=== PATIENT | female | born 1970 | race Caucasian/White ===

== ENCOUNTER 2019-04-01 10:50 | Emergency (ER) | payer MEDICARE ==
[2019-04-01 10:57] VITALS: BP 99/57
--- NOTE | 2019-04-01 11:07 | ER Document Report ---
HPI - HPI Time Seen by Provider: 04/01/19 11:02 Notes: Patient is a 48-year-old female with no significant past medical history who presents complaining of left distal ulnar wrist pain without precipitating event or injury that is been slowly increasing over the past 3 weeks. Movement makes the pain worse as well as pushing in the area. She has not noticed any swelling or bruising. She has no other concerns or complaints. Denies drug allergies. Denies any headache, fever, neck pain, URI, sore throat, chest pain, palpitations, syncope, cough, shortness of breath, wheeze, dyspnea, abdominal pain, nausea/vomiting/diarrhea, urinary retention, dysuria, hematuria, loss of control of bowel or bladder, numbness/tingling, saddle anesthesia, muscle paralysis/weakness, or rash. - ROS Systems Reviewed and Negative: Yes All other systems reviewed and negative Past Medical History - Social History Smoking Status: Never Smoker Family History: Reviewed & Not Pertinent Vertical Provider Document - CONSTITUTIONAL Agree With Documented VS: Yes Notes: PHYSICAL EXAMINATION: GENERAL: Well-appearing, well-nourished and in no acute distress. HEAD: Atraumatic, normocephalic. NECK: Normal range of motion, supple without lymphadenopathy. No midline tenderness. LUNGS: Breath sounds clear to auscultation bilaterally and equal. No wheezes rales or rhonchi. HEART: Regular rate and rhythm without murmurs, rubs, gallops. Musculoskeletal: Lt hand/wrist: No erythema, warmth, ecchymosis, deformity, or swelling noted. N/V intact distal. FROM to passive/active at the wrist. Strength 5+/5 to compensation adjuster. No scaphoid tenderness. + Xin reproduces patient's symptoms. Tinel/phalen neg. + mild tenderness ulnar distal wrist to palp. Gamekeeper negative. Extremities: No cyanosis, clubbing, or edema b/l. Peripheral pulses 2+. Capillary refill less than 3 seconds. NEUROLOGICAL: Normal speech, normal gait. Normal sensory, motor exams otherwise unremarkable PSYCH: Normal mood, normal affect. SKIN: see above. No rash Course - Vital Signs Vital signs: Temp Pulse Resp BP Pulse Ox 97.7 F 76 16 99/57 L 96 04/01/19 10:56 04/01/19 10:56 04/01/19 10:56 04/01/19 10:56 04/01/19 10:56 Discharge - Discharge Referrals: [facility] [[facility]] - Follow up as needed
--- NOTE | 2019-04-01 11:45 | RADIOLOGY REPORT (SQ) ---
EXAM DESCRIPTION: WRIST LEFT 3 VIEWS COMPLETED DATE/TIME: 04/01/2019 11:23 am REASON FOR STUDY: left distal ulnar wrist pain COMPARISON: None. NUMBER OF VIEWS: Three views. TECHNIQUE: AP, lateral, and oblique radiographic images acquired of the left wrist. LIMITATIONS: None. FINDINGS: MINERALIZATION: Normal. BONES: There is a well-circumscribed mixed sclerotic and lytic lesion in the distal ulnar diaphysis. SOFT TISSUES: No soft tissue swelling. No foreign body. OTHER: No other significant finding. 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 Correlation with noncontrast CT is recommended. TECHNICAL DOCUMENTATION: JOB ID: [id number] 2010 [employer]- All Rights Reserved Reading location - IP/workstation name: [email or web address]
--- NOTE | 2019-04-01 11:55 | ER Document Report ---
ED Medical Screen (RME) - General Chief Complaint: Wrist Pain Stated Complaint: WRIST INJURY Time Seen by Provider: 04/01/19 11:02 Primary Care Provider: [facility] [Provider Group] - Follow up as needed TRAVEL OUTSIDE OF THE [place] IN LAST 30 DAYS: No - HPI Notes: 04/01/19 Patient is a 48-year-old female with no significant past medical history who presents complaining of left distal ulnar wrist pain without precipitating event or injury that is been slowly increasing over the past 3 weeks. Movement makes the pain worse as well as pushing in the area. She has not noticed any swelling or bruising. She has no other concerns or complaints. Denies drug allergies. Denies any headache, fever, neck pain, URI, sore throat, chest pain, palpitations, syncope, cough, shortness of breath, wheeze, dyspnea, abdominal pain, nausea/vomiting/diarrhea, urinary retention, dysuria, hematuria, loss of control of bowel or bladder, numbness/tingling, saddle anesthesia, muscle paralysis/weakness, or rash. I have treated and performed a rapid initial assessment of this patient. A comprehensive ED assessment and evaluation of the patient, analysis of test resu lts and completion of medical decision making process will be conducted by additional ED providers. PHYSICAL EXAMINATION: GENERAL: Well-appearing, well-nourished and in no acute distress. Musculoskeletal: Lt hand/wrist: No erythema, warmth, ecchymosis, deformity, or swelling noted. N/V intact distal. FROM to passive/active at the wrist. Strength 5+/5 to breadman. No scaphoid tenderness. + Xin reproduces patient's symptoms. Tinel/phalen neg. + mild tenderness ulnar distal wrist to palp. Gamekeeper negative. - Related Data Allergies/Adverse Reactions: No Known Allergies Allergy (Verified 04/01/19 11:03) Past Medical History - Social History Frequency of alcohol use: None Drug Abuse: None Past Surgical History: Reports: Hx Breast Surgery - lumpectomy, Hx Orthopedic Surgery - subtailered joint fusions Physical Exam - Vital signs Vitals: Temp Pulse Resp BP Pulse Ox 97.7 F 76 16 99/57 L 96 04/01/19 10:56 04/01/19 10:56 04/01/19 10:56 04/01/19 10:56 04/01/19 10:56 Course - Vital Signs Vital signs: Temp Pulse Resp BP Pulse Ox 97.7 F 76 16 99/57 L 96 04/01/19 10:56 04/01/19 10:56 04/01/19 10:56 04/01/19 10:56 04/01/19 10:56 Doctor's Discharge - Discharge Referrals: [facility] [Provider [facility]] - Follow up as needed
--- NOTE | 2019-04-01 12:12 | ER Document Report ---
ED General - General Chief Complaint: Wrist Pain Stated Complaint: WRIST INJURY Time Seen by Provider: 04/01/19 11:02 Primary Care Provider: [facility] [Provider [facility]] - Follow up as needed Notes: 48-year-old [id number] female dizziness or breast cancer presents with several weeks of left ulnar wrist pain occasionally radiates down to the fingers and up the arm, with no trauma no swelling no fevers. No injection drug use distant history of breast cancer on surveillance just moved to [place] and is following up with Dr. Enzo Arana. TRAVEL OUTSIDE OF THE [place] IN LAST 30 DAYS: No - Related Data Allergies/Adverse Reactions: No Known Allergies Allergy (Verified 04/01/19 11:03) Past Medical History - Social History Smoking Status: Current Every Day Smoker Frequency of alcohol use: None Drug Abuse: None Family History: None Patient has suicidal ideation: No Patient has homicidal ideation: No Past Surgical History: Reports: Hx Breast Surgery - lumpectomy, Hx Orthopedic Surgery - subtailered joint fusions Review of Systems - Review of Systems Notes: REVIEW OF SYSTEMS GEN: Denies fever, chills, weight loss ENT: Denies sore throat, nasal discharge, ear pain EYES: Denies blurry vision, eye pain, discharge CV: Denies chest pain, palpitations, edema RESP: Denies cough, shortness of breath, wheezing GI: Denies abdominal pain, nausea, vomiting, diarrhea MSK: Left wrist pain SKIN: Denies rash, skin lesions LYMPH: Denies swollen glands/lymph nodes NEURO: Denies headache, focal weakness or numbness, dizziness PSYCH: Denies depression, suicidal or homicidal ideation PHYSICAL EXAMINATION General: No acute distress, well-nourished Head: Atraumatic, normocephalic ENT: Mouth normal, oropharynx moist, no exudates or tonsillar enlargement Eyes: Conjunctiva normal, pupils equal, lids normal Neck: No JVD, supple, no guarding CVS: Normal rate, regular rhythm, no murmurs Resp: No resp distress, equal and normal breath sounds bilaterally GI: Nondistended, soft, no tenderness to palpation, no rebound or guarding Ext: No deformities, no edema, normal range of motion in upper and lower ext Back: No CVA or midline TTP Skin: No rash, warm Lymphatic: No lymphadeopathy noted Neuro: Awake, alert. Face symmetric. GCS 15. Physical Exam - Vital signs Vitals: Temp Pulse Resp BP Pulse Ox 97.7 F 76 16 99/57 L 96 04/01/19 10:56 04/01/19 10:56 04/01/19 10:56 04/01/19 10:56 04/01/19 10:56 Course - Re-evaluation Re-evalutation: 04/01/19 14:55 Wrist pain which is either radiculopathy or tendinitis. No injury, no swelling or signs of acute arthritis X-ray shows benign bone lesion. CT confirms. No fracture. Unlikely mets discussed with patient. She is following up with Dr. Enzo pace for long-term cancer surveillance, and will discuss with him regarding referral for PT/further evaluation. Placed in a wrist splint. Discharge - Vital Signs Vital signs: Temp Pulse Resp BP Pulse Ox 97.7 F 76 16 99/57 L 96 04/01/19 10:56 04/01/19 10:56 04/01/19 10:56 04/01/19 10:56 04/01/19 10:56 - Diagnostic Test Radiology reviewed: Image reviewed, Reports reviewed Discharge - Discharge Clinical Impression: Osteoid osteoma, Left wrist pain Condition: Good Disposition: HOME, SELF-CARE Additional Instructions: Least take ibuprofen as needed and wear the splint for wrist pain. The bone cyst we found is unlikely to be the cause of your pain and you will require further testing by primary care provider. Referrals: [facility] ([facility] [Provider Group] - Follow up as needed
--- NOTE | 2019-04-01 12:51 | RADIOLOGY REPORT (SQ) ---
EXAM DESCRIPTION: CT LT UPPER EXTREMITY WITHOUT COMPLETED DATE/TIME: 04/01/2019 12:09 pm REASON FOR STUDY: evaluate lesion of left wrist as noted on XR COMPARISON: None. EXAM PARAMETERS: TECHNIQUE:Axial imaging performed through the left wrist with reformatted coronal a nd sagittal imaging windowed for bone and soft tissues. Images saved to PACS. 3D IMAGING: Were 3D images as MIP, SSD, or volume rendering performed at the work station? No All CT scanners at this facility use dose modulation, iterative reconstruction, and/or weight based d osing when appropriate to reduce radiation dose to as low as reasonably achievable (ALARA). [facility]: Dose Right [facility]: [employer] [facility]: Dose Right [facility]: Teradose 4D [facility]: [employer] RADIATION DOSE: CT Rad equipment meets quality standard of care and radiation dose reduction techniqu es were employed. CTDIvol: 2.6 mGy. DLP: 49 mGy-cm. mGy. LIMITATIONS: None. FINDINGS: SOFT TISSUES: No obvious swelling or foreign body. BONES: In the distal ulna, about 4 cm from the tip of the ulnar styloid there is a small lesion that is somewhat lytic with some peripheral calcification. There does not appear to be robust reaction in the adjacent cortex at this time. MINERALIZATION: Normal. OTHER: No other significant finding. IMPRESSION: The findings are suggestive of osteoid osteoma. Correlate clinically. TECHNICAL DOCUMENTATION: JOB ID: [id number] [facility] [id number]: Final reports with documentation of one or more dose reduction techniques (e.g., Automate d exposure control, adjustment of the mA and/or kV according to patient size, use of iterative recons truction technique) 2010 [email or web address]- All Rights Reserved Reading location - IP/workstation name: [email or web address]
== END 2019-04-01 13:55 | disposition home or self-care (01) ==
LOC: ER 10:50
DX: D16.9 Benign neoplasm of bone and articular cartilage, unspecified (principal); M25.532 Pain in left wrist; R42 Dizziness and giddiness; F17.200 Nicotine dependence, unspecified, uncomplicated; Z85.3 Personal history of malignant neoplasm of breast
CPT/HCPCS: 99284

== ENCOUNTER → 2019-04-17 | Outpatient (CLI) | payer MEDICARE ==
--- NOTE | 2019-04-17 12:36 | RADIOLOGY REPORT (SQ) ---
EXAM DESCRIPTION: MRI LT UPPER EXTREMITY WITHOUT COMPLETED DATE/TIME: 04/17/2019 11:31 am REASON FOR STUDY: (M85.60)OTHER CYST OF BONE, UNSPECIFIED SITE;(M85.632)OTHER CYST OF BONE, L M85.60 OTHER CYST OF BONE, UNSPECIFIED SITE M85.632 OTHER CYST OF BONE, LEFT FOREARM COMPARISON: CT scan TECHNIQUE: Multiplanar imaging to include fat and fluid sensitive sequences. RENAL FUNCTION: Not indicated LIMITATIONS: None. FINDINGS: MASS SIGNAL CHARACTERISTICS: LOCATION: Distal ulnar marrow. SIGNAL CHARACTERISTICS AND ENHANCEMENT PATTERN: Rim calcification with central chondroid matrix. No adjacent edema. MEASUREMENTS: 5 x 7 mm MARROW SIGNAL IN ADJACENT BONES: Normal OTHER SIGNIFICANT BONE, JOINT OR SOFT TISSUE FINDINGS: None IMPRESSION: Findings most likely small enchondroma. No suspicious features. TECHNICAL DOCUMENTATION: JOB ID: [id number] 2010 [employer]- All Rights Reserved Reading location - IP/workstation name: [email or web address]
--- NOTE | 2019-04-17 12:56 | RADIOLOGY REPORT (SQ) ---
EXAM DESCRIPTION: MRI LT UPPER JOINT WITHOUT COMPLETED DATE/TIME: 04/17/2019 11:31 am REASON FOR STUDY: (M85.60)OTHER CYST OF BONE, UNSPECIFIED SITE M85.60 OTHER CYST OF BONE, UNSPECIFI ED SITE M85.632 OTHER CYST OF BONE, LEFT FOREARM COMPARISON: Plain radiographs TECHNIQUE: Left wrist images acquired and stored on PACS. Multiplanar images include fat sensitive sequences as T1, fluid sensitive sequences as FST2/STIR, cartilage sensitive sequences as FSPD, gradi ent echo sequences. LIMITATIONS: None. FINDINGS: BONE MARROW: No alteration of signal to suggest marrow replacement or edema. No occult fra cture. No large osteophytes. Ulnar lesion described on 1 the other MRI CARPAL ALIGNMENT AND ARTICULATION: Negative ulnar variance. EFFUSION: None noted. No loose bodies. SCAPHOLUNATE LIGAMENT: Intact without tear. LUNATE-TRIQUETRAL LIGAMENT: Intact without tear. TFC COMPLEX: Generalize fragmentation of the TFCC with fluid in the distal radioulnar joint. Fluid a round the extensor carpi ulnaris tendon. EXTRINSIC LIGAMENTS AND DISTAL RADIO-ULNAR JOINT: Dorsal and volar distal RUJ intact without subluxat ion of the distal ulna. 1-6 EXTENSOR COMPARTMENTS: Normal. Specifically no tendinopathy of the abductor pollicis longus or ex tensor pollicis brevis to suggest de Quervain's Syndrome. CARPAL TUNNEL AND MEDIAN NERVE: Normal volume and morphology of the carpal tunnel proximally at the l evel of the radiocarpal joint and distally at the hook of the hamate. No thickening or signal alterat ion of the median nerve. OTHER: No other significant finding. IMPRESSION: Generalized tear of the TFCC with fluid in the distal radioulnar joint. Fluid in the extensor carpi ulnaris tendon sheath with tendinopathy of the tendon. TECHNICAL DOCUMENTATION: JOB ID: [id number] 2010 [employer]- All Rights Reserved Reading location - IP/workstation name: [email or web address]
== END ==
LOC: RAD 10:10
PROVIDERS: ATTEND Orthopaedic Surgery
DX: M85.632 Other cyst of bone, left forearm (principal)

== ENCOUNTER → 2019-07-28 | Outpatient (CLI) | payer MEDICARE | LOC: WI 08:58 | PROVIDERS: ATTEND Internal Medicine Hematology & Oncology | DX: C50.411 Malignant neoplasm of upper-outer quadrant of right female breast (principal) | CPT/HCPCS: 77065; G0279 ==

== ENCOUNTER → 2020-01-31 | Outpatient (CLI) | payer MEDICARE, BC ==
--- NOTE | 2020-01-31 11:39 | WOMENS IMAGING REPORT ---
EXAM DESCRIPTION: 3D DX MAMMO BILAT IMAGES COMPLETED DATE/TIME: 01/31/2020 8:56 am REASON FOR STUDY: C50.4111 C50.411 MALIG NEOPLM OF UPPER-OUTER QUADRANT OF RIGHT FEMALE COMPARISON: Right diagnostic mammography 07/28/2019. EXAM PARAMETERS: Standard craniocaudal and mediolateral oblique views of each breast recorded using digital acquisition and breast tomosynthesis. Right true lateral view. Read with the assistance of CAD: .[email or web address] Unix Analyst Version 9.2 LIMITATIONS: None. FINDINGS: RIGHT BREAST MASSES: No suspicious masses. CALCIFICATIONS: Benign eggshell calcification mid right breast. ARCHITECTURAL DISTORTION: Post treatment deep breast distortion and volume loss, chronic. ASYMMETRY: None noted. OTHER: No other significant findings. LEFT BREAST MASSES: No suspicious masses. CALCIFICATIONS: No new or suspicious calcifications. ARCHITECTURAL DISTORTION: None. ASYMMETRY: None noted. OTHER: No other significant finding. IMPRESSION: Chronic right breast changes. No worrisome left breast findings. BREAST DENSITY: b. There are scattered areas of fibroglandular density. BIRAD: ASSESSMENT: 2 Benign findings. RECOMMENDATION: RECOMMENDED FOLLOW UP: Yearly mammography. SPECIFIC INTERVENTION/IMAGING/CONSULTATION RECOMMENDED:No additional intervention/ imaging/consultati on needed at this time. COMMUNICATION:No significant abnormalities to discuss with the patient today. COMMENT: The patient has been notified of the results by letter per SA requirements. Additional no tification policies are in place for contacting patient with suspicious or incomplete findings. Quality ID #225: The [employer] recommends an annual screening mammogram for women aged 40 years or over. This facility utilizes a reminder system to ensure that all patients receive reminder letters, and/or direct phone calls for appointments. This includes reminders for routine scr eening mammograms, diagnostic mammograms, or other Breast Imaging Interventions when appropriate. Th is patient will be placed in the appropriate reminder system. TECHNICAL DOCUMENTATION: FINDING NUMBER: (1) ASSESSMENT: (1) JOB ID: [id number] [employer]- All Rights Reserved Reading location - IP/workstation name: [email or web address]
== END ==
LOC: WI 08:51
PROVIDERS: ATTEND Internal Medicine Hematology & Oncology
DX: C50.411 Malignant neoplasm of upper-outer quadrant of right female breast (principal)
CPT/HCPCS: 77066; G0279; 77062

== ENCOUNTER → 2020-03-07 | Outpatient (CLI) | payer OTHER, MEDICARE ==
--- NOTE | 2020-03-07 14:10 | RADIOLOGY REPORT (SQ) ---
EXAM DESCRIPTION: CT HEAD COMBO IMAGES COMPLETED DATE/TIME: 03/07/2020 1:56 pm REASON FOR STUDY: MAL DANYA OF UPPER OUTER QUADRANT OF R FEMAL BREAST C50.411 MALIG NEOPLM OF UPPER-O UTER QUADRANT OF RIGHT FEMALE COMPARISON: None. TECHNIQUE: Axial images acquired through the brain without and with intravenous contrast. Images re viewed with bone, brain and subdural windows. Additional sagittal and coronal reconstructions were g enerated. Images stored on PACS. All CT scanners at this facility use dose modulation, iterative reconstruction, and/or weight based d osing when appropriate to reduce radiation dose to as low as reasonably achievable (ALARA). [facility]: Dose Right [facility]: CareDose [facility]: Dose Right [facility]: Teradose 4D [facility]: HSTYLE CONTRAST TYPE AND DOSE: contrast/concentration: Isovue 350.00 mmol/ml; Total Contrast Delivered: 50. 0 ml; Total Saline Delivered: 45.0 ml RENAL FUNCTION: Creatinine 0.7. RADIATION DOSE: CT Rad equipment meets quality standard of care and radiation dose reduction techniq ues were employed. CTDIvol: 48.8 - 48.8 mGy. DLP: 1721 mGy-cm.. LIMITATIONS: None. FINDINGS: VENTRICLES: Normal size and contour. CEREBRUM: No masses. No hemorrhage. No midline shift. Normal mckeon/white matter differentiation. No ev idence for acute infarction. No enhancing lesions. CEREBELLUM: No masses. No hemorrhage. No alteration of density. No evidence for acute infarction. No enhancing lesions. EXTRA-AXIAL SPACES: No fluid collections. No enhancing lesions. ORBITS AND GLOBE: No intra- or extraconal masses. Normal contour of globe without masses. CALVARIUM: No fracture. PARANASAL SINUSES: No fluid or mucosal thickening. SOFT TISSUES: No mass or hematoma. OTHER: No other significant finding. IMPRESSION: NORMAL BRAIN CT WITHOUT AND WITH CONTRAST. EVIDENCE OF ACUTE STROKE: NO. TECHNICAL DOCUMENTATION: JOB ID: [id number] Quality ID # [id number]: Final reports with documentation of one or more dose reduction techniques (e.g., Au tomated exposure control, adjustment of the mA and/or kV according to patient size, use of iterative reconstruction technique) 2010 [employer]- All Rights Reserved Reading location - IP/workstation name: [email or web address]
== END ==
LOC: RAD 13:25
PROVIDERS: ATTEND Internal Medicine Hematology & Oncology
DX: C50.411 Malignant neoplasm of upper-outer quadrant of right female breast (principal); R41.9 Unspecified symptoms and signs involving cognitive functions and awareness; H53.8 Other visual disturbances
CPT/HCPCS: 70470; 82565